=== PATIENT | female | born 1975 | race Caucasian/White ===

== ENCOUNTER 2022-12-15 05:25 | Day surgery (SDC) | payer OTHER ==
[~2022-12-15] VITALS: Ht 160 cm; Wt 113.4 kg
[2022-12-15] MEDS ORDERED: LIDOCAINE 2% 1000 MG/50 ML VIAL INJ ONE (07:22)
[2022-12-15 07:35] LABS: PROTHROMBIN TIME 9.7 secs (10.8-13.4)
== END 2022-12-15 09:25 | disposition home or self-care (01) ==
LOC: MOR 05:25 → MMU 06:46 → MOR 09:25
PROVIDERS: ATTEND Internal Medicine Gastroenterology
DX: K76.0 Fatty (change of) liver, not elsewhere classified (principal); E78.5 Hyperlipidemia, unspecified; Z90.710 Acquired absence of both cervix and uterus; Z20.822 Contact with and (suspected) exposure to COVID-19
CPT/HCPCS: 36415; 47000; 76942; 85610; 85730; 87426; J2001; Q0092